=== PATIENT | female | born 1950 | race Caucasian/White ===

== ENCOUNTER → 2022-08-27 12:49 | Outpatient (CLI) | payer MEDICARE, OTHER, SELFPAY ==
[2022-08-27 16:39] LABS: Hematocrit 45.5 % (37.0-47.0); Hemoglobin 15.1 g/dL (12.2-16.2); Red Blood Count 4.82 M/mm3 (4.20-5.40); White Blood Count 10.2 K/mm3 (4.8-10.8)
[2022-08-27 16:40] LABS: Basophils # 0.1 K/mm3 (0-0.2); Basophils % 0.8 % (0.1-2.0); Eosinophils # 0.4 K/mm3 (0.0-0.4); Eosinophils % 3.9 % (0.1-12.0); Lymphocytes # 3.6 K/mm3 (0.7-4.5); Lymphocytes % 35.4 % (10-50); Mean Corpuscular HGB Conc 33.1 g/dL (31.8-35.4); Mean Corpuscular Hemoglobin 31.3 pg (27.0-31.2); Mean Corpuscular Volume 94.5 fl (81-99); Mean Platelet Volume 8.5 fl (7.4-10.4); Monocytes # 0.6 K/mm3 (0.1-1.0); Monocytes % 5.4 % (1.7-9.3); Neutrophils # 5.6 K/mm3 (1.8-7.8); Neutrophils % 54.5 % (37.0-80.0); Platelet Count 421 K/mm3 (142-424); Red Cell Distribution Width 13.2 % (11.5-17.5)
[2022-08-27 16:54] LABS: Alanine Aminotransferase 39 U/L (12-78); Albumin Level 3.6 g/dl (3.5-5.0); Albumin/Globulin Ratio 1.3 (1.1-1.8); Alkaline Phosphatase 192 U/L (38-126); Anion Gap 11.7 mEq/L (5-15); Aspartate Amino Transferase 37 U/L (14-36); Bilirubin,Total 0.5 mg/dl (0.2-1.3); Blood Urea Nitrogen 29 mg/dl (7-17); Calcium 8.3 mg/dl (8.4-10.2); Carbon Dioxide 31 mmol/L (22.0-30.0); Chloride 98 mmol/L (98-107); Chol/HDL Ratio 2.8 (1-3.5); Cholesterol 187 mg/dl (140-200); Estimated Glomerular Filt Rate 62 ml/min (>60); GFR (African American) 74 ML/MIN (>60); Globulin 2.8 g/dL (1.3-3.2); Glucose 69 mg/dl (74-100); HDL Cholesterol 67 mg/dl (40-60); Potassium 4.7 mmoL/L (3.5-5.1); Sodium 136 mmol/L (136-145); Total Protein,Serum 6.4 g/dl (6.3-8.2); Triglycerides 126 mg/dl (30-150); VLDL Cholesterol 25 mg/dL (0-40)
[2022-08-27 17:05] LABS: Direct LDL Cholesterol 82.91 mg/dL (100-129)
[2022-08-27 17:21] LABS: Thyroid Stimulating Hormone 1.06 uIU/mL (0.465-4.68)
== END ==
PROVIDERS: PCP Internal Medicine; Visit Provider Internal Medicine
DX: E03.9 Hypothyroidism, unspecified (principal); E78.5 Hyperlipidemia, unspecified; I10 Essential (primary) hypertension
CPT/HCPCS: 80053; 80061; 84443; 85025

== ENCOUNTER → 2022-10-21 13:41 | Outpatient (POV) | payer MEDICARE, OTHER, SELFPAY | PROVIDERS: Visit Provider Dermatology | DX: Z00.00 Encounter for general adult medical examination without abnormal findings (principal) ==

== ENCOUNTER → 2022-12-19 14:42 | Outpatient (CLI) | payer MEDICARE, OTHER, SELFPAY ==
--- NOTE | 2022-12-19 14:48 | CT_ITS ---
FINAL REPORT CLINICAL HISTORY: LLQ PAIN COMPARISON: None FINDINGS: Axial CT images of the abdomen and pelvis were obtained without intravenous contrast. Coronal and sagittal reformatted images were also obtained.This study was performed with techniques to keep radiation doses as low as reasonably achievable (ALARA). Individualized dose reduction techniques using automated exposure control or adjustment of mA and/or kV according to the patient's size were employed. Abdomen:The lung bases are clear. There is no evidence of renal stone or hydronephrosis.The liver, spleen and pancreas have an unremarkable, unenhanced appearance. No mass or adenopathy is seen. Moderate vascular calcification is present. A small hiatal hernia is noted. Pelvis: Images of the pelvis reveal no evidence of ureteral dilation or ureteral stone. There are multiple colonic diverticula present, with inflammatory change adjacent to the distal descending colon, compatible with diverticulitis. There is no evidence of obstruction, abscess, or pneumoperitoneum. The patient is post hysterectomy. IMPRESSION: Multiple colonic diverticula and inflammatory change adjacent to the distal descending colon compatible with diverticulitis. No abscess, obstruction, or pneumoperitoneum is present. Reviewed, Interpreted and Dictated by Luis Maya III, MD Transcribed by Nory Pratt Authenticated and . [facility]
[2022-12-19 15:05] LABS: Microscopic, Urine URINE MICROSCOPIC (MICROSCOPIC)
[2022-12-19 15:23] LABS: Appearance,Urine CLEAR (Clear); Basophils # 0.1 K/mm3 (0-0.2); Basophils % 0.6 % (0.1-2.0); Bilirubin,Urine Negative (Negative); Blood, Urine Negative (Negative); Color,Urine YELLOW (Yellow); Eosinophils # 0.4 K/mm3 (0.0-0.4); Eosinophils % 4.3 % (0.1-12.0); Glucose,Urine (UA) Negative (Negative); Hematocrit 46.7 % (37.0-47.0); Ketones,Urine TRACE (Negative); Leukocyte Esterase,Urine Negative (Negative); Lymphocytes # 1.7 K/mm3 (0.7-4.5); Lymphocytes % 18.1 % (10-50); Mean Corpuscular HGB Conc 32.1 g/dL (31.8-35.4); Mean Corpuscular Hemoglobin 29.8 pg (27.0-31.2); Mean Corpuscular Volume 92.7 fl (81-99); Monocytes # 0.6 K/mm3 (0.1-1.0); Monocytes % 6.6 % (1.7-9.3); Neutrophils # 6.7 K/mm3 (1.8-7.8); Neutrophils % 70.3 % (37.0-80.0); Nitrate,Urine Negative (Negative); PH,Urine 5.5 (5.0-8.5); Platelet Count 312 K/mm3 (142-424); Protein,Urine Negative (Negative); Red Blood Count 5.04 M/mm3 (4.20-5.40); Red Cell Distribution Width 12.7 % (11.5-17.5); Specific Gravity, Urine 1.025 (1.005-1.030); Urobilinogen,Urine 0.2 EU/dl (0.2); White Blood Count 9.6 K/mm3 (4.8-10.8)
[2022-12-19 15:32] LABS: Chloride 99 mmol/L (98-107); Potassium 3.5 mmoL/L (3.5-5.1); Sodium 136 mmol/L (136-145)
[2022-12-19 15:34] LABS: Alanine Aminotransferase 39 U/L (12-78); Aspartate Amino Transferase 38 U/L (14-36); Blood Urea Nitrogen 19 mg/dl (7-17); Estimated Glomerular Filt Rate 71 ml/min (>60); GFR (African American) 85 ML/MIN (>60)
[2022-12-19 15:35] LABS: Albumin Level 3.9 g/dl (3.5-5.0); Alkaline Phosphatase 274 U/L (38-126); Anion Gap 11.5 mEq/L (5-15); Bilirubin,Total 0.5 mg/dl (0.2-1.3); Calcium 9.9 mg/dl (8.4-10.2); Carbon Dioxide 29 mmol/L (22.0-30.0); Glucose 99 mg/dl (74-100); Total Protein,Serum 7.9 g/dl (6.3-8.2)
== END ==
PROVIDERS: PCP Internal Medicine; Visit Provider Internal Medicine
DX: R10.32 Left lower quadrant pain (principal)
CPT/HCPCS: 36415; 74176; 80053; 81001; 85025

== ENCOUNTER 2023-10-20 15:32 | Outpatient (CLI) | payer MEDICARE, OTHER, SELFPAY ==
[2023-10-20 13:36] LABS: Basophils # 0.1 K/mm3 (0-0.2); Basophils % 1.4 % (0.1-2.0); Eosinophils # 0.4 K/mm3 (0.0-0.4); Eosinophils % 4.9 % (0.1-12.0); Hematocrit 47.1 % (37.0-47.0); Hemoglobin 16.1 g/dL (12.2-16.2); Lymphocytes % 25.3 % (10-50); Mean Corpuscular HGB Conc 34.1 g/dL (31.8-35.4); Mean Corpuscular Hemoglobin 31.4 pg (27.0-31.2); Mean Corpuscular Volume 92.1 fl (81-99); Mean Platelet Volume 7.9 fl (7.4-10.4); Monocytes # 0.5 K/mm3 (0.1-1.0); Monocytes % 6.3 % (1.7-9.3); Neutrophils % 62.1 % (37.0-80.0); Platelet Count 289 K/mm3 (142-424); Red Blood Count 5.11 M/mm3 (4.20-5.40); Red Cell Distribution Width 13.5 % (11.5-17.5); White Blood Count 8.1 K/mm3 (4.8-10.8)
[2023-10-20 14:18] LABS: Alanine Aminotransferase 85 U/L (12-78); Albumin Level 4.3 g/dl (3.5-5.0); Albumin/Globulin Ratio 1.3 (1.1-1.8); Alkaline Phosphatase 291 U/L (38-126); Anion Gap 16.3 mEq/L (5-15); Aspartate Amino Transferase 67 U/L (14-36); Bilirubin,Total 0.7 mg/dl (0.2-1.3); Blood Urea Nitrogen 21 mg/dl (7-17); Calcium 9.6 mg/dl (8.4-10.2); Carbon Dioxide 23 mmol/L (22.0-30.0); Chloride 97 mmol/L (98-107); Chol/HDL Ratio 4.1 (1-3.5); Cholesterol 261 mg/dl (140-200); Estimated Glomerular Filt Rate 61 ml/min (>60); GFR (African American) 74 ML/MIN (>60); Globulin 3.4 g/dL (1.3-3.2); Glucose 93 mg/dl (74-100); HDL Cholesterol 63 mg/dl (40-60); Potassium 4.3 mmoL/L (3.5-5.1); Sodium 132 mmol/L (136-145); Total Protein,Serum 7.7 g/dl (6.3-8.2); Triglycerides 158 mg/dl (30-150); VLDL Cholesterol 32 mg/dL (0-40)
[2023-10-20 14:31] LABS: Direct LDL Cholesterol 132.26 mg/dL (100-129)
[2023-10-20 14:37] LABS: 25-OH Vitamin D, Total 43.9 ng/mL (30-100)
== END 2023-10-20 23:59 | disposition home or self-care (01) ==
LOC: LAB.DROPOF 15:33
PROVIDERS: PCP Internal Medicine; Visit Provider Internal Medicine
DX: E78.5 Hyperlipidemia, unspecified (principal); E55.9 Vitamin D deficiency, unspecified; I10 Essential (primary) hypertension
CPT/HCPCS: 80053; 80061; 82306; 85025

== ENCOUNTER 2024-12-04 23:08 | Emergency (ER) | payer MEDICARE, OTHER, SELFPAY ==
--- NOTE | 2024-12-04 23:09 | HMH.EDGENADL ---
Discharge Plan Disposition Patient Disposition: Home, Self-Care Prescriptions Prescriptions: No Action potassium chloride 10 mEq tablet extended release 10 meq PO DAILY Qty: 90 1RF irbesartan-hydrochlorothiazide 300-12.5 mg tablet 1 tab PO DAILY Qty: 90 1RF furosemide 20 mg tablet See Rx Instructions .ROUTE .COMPLEX Qty: 90 1RF Dose Instruction: Take 2 tablets by mouth once daily Rx Instructions: Take 2 tablets by mouth once daily Referrals Follow up/Referrals: Provider,Referral, MD [Primary Care Provider, Medical] - See instructions Activity Restrictions/Add. Instructions Additional Instructions/Restrictions: Please follow-up with your primary care provider. Please return to the emergency department if you develop any new or worsening symptoms or become concerned for your health. Clinical Impressions Clinical Impression: Redness of skin Instructions Patient Instructions: DI for Skin Abscess Print Language Print Language: Finnish Discharge ED Provider: Qasim Kay General Adult HPI General Chief complaint: Skin/Abscess/Foreign Body Stated complaint: Allergic Reaction Time Seen by Provider: 12/04/24 23:09 History of Present Illness HPI narrative: 74-year-old female with history of hypertension presents for diffuse itchy red skin. She reports that started shortly prior to arrival. She took some Benadryl but did not improve. She denies any wheezing chest pain shortness of breath tongue/lip swelling, hives, abdominal pain, nausea vomiting or any other symptoms. Just itchy red skin. Nothing like this has had before. She denies any new allergic exposures. She did not take any medications recently has not had any recent medication changes. She did eat some salad from [employer] but that was hours before this happened. Related Data Previous Rx's ?Medication ?Instructions ?Recorded potassium chloride 10 mEq 10 meq PO DAILY #90 tabs 03/16/24 tablet,extended release irbesartan 300 1 tab PO DAILY #90 tabs 09/09/24 mg-hydrochlorothiazide 12.5 mg tablet furosemide 20 mg tablet See Rx Instructions .Route 10/06/24 .COMPLEX #90 tabs Allergies Allergy/AdvReac Type Severity Reaction Status Date / Time aspirin Allergy Other Verified 10/20/23 11:52 augmentin Allergy Hives Uncoded 10/20/23 11:52 clindimyacin Allergy c-diff Uncoded 10/20/23 11:52 foramin Allergy Other Uncoded 10/20/23 11:52 [facility] Disclaimer: The information contained in this section may have been updated after the patient was seen, as this information can be updated by other users. Social History (Updated 10/21/23 @ 08:28 by Jaret Magdaleno MD) Smoking Status: Current every day smoker alcohol intake: never current occupational status: retired Travel in the last 8 weeks?: Inside the [place] Other Medical History Have you received the Pneumonia Vaccine: No ROS Obtained: Yes All systems reviewed & no additional complaints except as documented Physical Exam General General appearance: alert and in no apparent distress Head Head exam: atraumatic and normocephalic Eye Eye exam: Present normal appearance, PERRL and EOMI ENT ENT exam: Present normal oropharynx and normal external ear exam Neck Neck exam: Present normal inspection and full ROM Chest Chest inspection: Present normal inspection and symmetric chest wall rise; Absent tenderness Respiratory Respiratory exam: Present normal lung sounds bilaterally; Absent respiratory distress Cardiovascular Cardiovascular exam: Present regular rate and normal rhythm Abdominal Exam Abdominal exam: Present soft; Absent distention, tenderness or guarding Extremities Exam Extremities exam: Present normal inspection; Absent edema or joint swelling Back Exam Back exam: Present normal inspection; Absent tenderness Neurological Exam Neurological exam: Present alert and oriented X3; Absent motor sensory deficit Psychiatric Psychiatric exam: Present normal affect and normal mood Skin Skin exam: Present warm, dry and erythema (Diffuse erythema without hives) Lymphatic Lymphatic Findings: no adenopathy Medical Decision Making Medical Records Medical records reviewed: Yes I reviewed the patient's medical records. Screening: Per USPSTF and CDC recommendations, given the prevalence of disease in our region, it is our hospital?s policy to screen for HIV and viral Hepatitis for all patients aged 18 and over and those with ongoing risk factors. Dirk Inquiry Pt receiving controlled substance: No Dirk was queried for this patient: No Vital Signs: 12/04/24 23:13 12/05/24 00:16 12/05/24 00:52 Temperature 97.7 F 97.9 F Temperature Source Oral Pulse Rate 66 Pulse Rate [Left Radial] 105 H Respiratory Rate 20 16 Blood Pressure 218/106 H 190/90 H Blood Pressure [Right Arm] 245/107 H Blood Pressure Mean [Right Arm] 153 Blood Pressure Source Manual Cuff/ Auscultation Blood Pressure Source [Right Arm] Automatic Cuff Blood Pressure Position [Right Arm] Sitting 02 Sat by Pulse Oximetry 95 Oxygen Delivery Method Room Air Room Air Lab Data Lab results reviewed: Yes I reviewed the patient's lab results. Lab Results 12/04/24 23:12: WBC 8.4, RBC 5.00, Hgb 15.4, Hct 46.2, MCV 92.4, MCH 30.8, MCHC 33.3, RDW 12.9, Plt Count 252, MPV 10.0, Neut % (Auto) 49.4, Lymph % (Auto) 40.3, [place] % (Auto) 7.6, Eos % (Auto) 1.9, Baso % (Auto) 0.6, Neut # (Auto) 4.1, Lymph # (Auto) 3.4, [place] # (Auto) 0.6, Eos # (Auto) 0.2, Baso # (Auto) 0.1, Sodium 133 L, Potassium 3.7, Chloride 102, Carbon Dioxide 24, Anion Gap 10.7, BUN 24 H, Creatinine 0.80, Estimated Creat Clear 58, Estimated GFR 70, Est GFR ( Amer) 85, Glucose 109 H, Calcium 10.2, Total Bilirubin 0.8, AST 74 H, ALT 70, Alkaline Phosphatase 359 H, Total Protein 8.1, Albumin 4.2, Globulin 3.9 H, Albumin/Globulin Ratio 1.1 12/04/24 23:12 12/04/24 23:12 Orders (Tests/Meds): ED MEDICATIONS Discontinued Medications Generic Name Dose Route Start Last Admin Trade Name Freq PRN Reason Stop Dose Admin Famotidine 20 mg 12/04/24 23:10 12/04/24 23:15 Famotidine 20mg/2ml Vial IV 12/04/24 23:11 20 mg ONCE ONE Administration Sodium Chloride 1,000 mls @ 999 mls/hr 12/04/24 23:15 12/04/24 23:15 Sod Chlor 0.9% 1000ml Bag IV 12/05/24 00:15 999 mls/hr .Q1H1M GORDO Administration Methylprednisolone Sodium Succinate 125 mg 12/04/24 23:10 12/04/24 23:15 Methylprednisolone Sod Succ 125mg Vial IM 12/04/24 23:11 125 mg ONCE ONE Administration Sodium Chloride 8 ml 12/04/24 23:10 Sodium Chloride 0.9% 10ml Vial IV 01/03/25 23:09 NEEDED PRN dilute pepcid ORDERS Category Date Time Status CBC w/Auto Diff [Complete Blood Count Auto Diff] Stat Lab 12/04/24 23:12 Completed CMP [Comprehensive Metabolic Panel] Stat Lab 12/04/24 23:12 Completed ECG Data Tracing #1: I reviewed this ECG and interpreted as documented below: Sinus rhythm, rate of 98, no significant ST changes. ECG initial impression date: 12/04/24 ECG initial impression time: 23:12 Medical Decision Narrative: 74-year-old female with history of hypertension hyperlipidemia presents for diffuse redness and itchy skin. History was obtained via interactive discussion with patient. On arrival, patient is febrile, hypertensive, satting properly on room air, moving all extremities spontaneously. Full physical exam performed and significant for clear lungs bilaterally, no evidence of angioedema no hives, benign abdominal exam. Differential includes but is not limited to anaphylaxis, angioedema, idiopathic urticaria, allergic reaction, patient does not meet criteria for anaphylaxis, only symptom is itchy red skin. Patient was given Solu-Medrol, Pepcid, took Benadryl prior to arrival for symptomatic management and correction of underlying abnormalities. Workup initiated including CBC CMP EKG. On re-evaluation, patient has marked symptomatic improvement. No longer significantly red or itchy. Laboratory workup independently interpreted by me and significant for no significant electrolyte derangement no significant leukocytosis. Given patient history, exam and workup, patient's presentation most likely represents skin eruption of uncertain etiology, could be allergic reaction. No evidence of anaphylaxis angioedema or other more serious pathology at this time. Patient was discharged in stable condition with instructions to follow-up with PCP, return precautions given.. Procedures Risk/Benefits of Procedure(s) Were Explained: Yes Critical Care Critical Care Time Critical Care Time: No
--- NOTE | 2024-12-04 23:12 | ECG_ITS ---
APPROVED REPORT Exam: Resting ECG HR:90 bpm ECG Measurements Heart Rate 90 AXES OK 167 P 78 QRSd 98 QRS 6 QT 306 T 65 QTc 354 Conclusion SINUS RHYTHM NONSPECIFIC T-WAVE ABNORMALITY BORDERLINE ECG UNCONFIRMED REPORT Electronically signed by : ROZ VAZQUEZ, 12/06/2024 03:48:37
[2024-12-04 23:13] VITALS: BP 245/107; PULSE 105; RESP 20; TEMP 36.5; O2SAT 95; BMI 30.2
[2024-12-04] MEDS: 0.9 % SODIUM CHLORIDE 1000ML 1,000 ML 999 ML IV (23:15)
[2024-12-04] MEDS: METHYLPREDNISOLONE SOD SUCC 125MG VIAL 125 MG IM (23:15)
[2024-12-04] MEDS: FAMOTIDINE 20MG/2ML VIAL 20 MG IV (23:15)
[2024-12-04 23:18] LABS: Hematocrit 46.2 % (37.0-47.0); Hemoglobin 15.4 g/dL (12.2-16.2); Immature Granulocytes % 0.2 %; Mean Corpuscular HGB Conc 33.3 g/dL (31.8-35.4); Mean Corpuscular Hemoglobin 30.8 pg (27.0-31.2); Mean Corpuscular Volume 92.4 fl (81-99); Nucleated Red Blood Cells % 0 %; Platelet Count 252 K/mm3 (142-424); Red Blood Count 5.00 M/mm3 (4.20-5.40); Red Cell Distribution Width-SD 43.7 fL; White Blood Count 8.4 K/mm3 (4.8-10.8)
--- OUTSIDE RECORDS SUMMARY | 2024-12-04 23:27 | XMS_ITS | Patient Health Record ---
Author Organization [facility] Address [address] [place] [id number] Support Name Relationship Address Phone CRISTELA DE Guarantor Unknown [phone] Reason For Referral No Information Plan Of Treatment No Information
--- OUTSIDE RECORDS SUMMARY | 2024-12-04 23:27 | XMS_ITS | Patient Health Record ---
Author Organization [facility] Billing Info Address [address] [place] [address] Care Team Providers Care Lay Out And Detail Drafter Name Role Phone TAYLER GILES Primary Care Provider MELISSA MAYES [phone] Allergies Allergen (clinical drug ingredient) Drug/Non Drug Allergy documented on EMR Reaction Allergy Type Onset Date Status aspirin Aspirin Unknown Drug Allergy Active clindamycin Clindamycin HCl Unknown Drug Allergy Active Heparin Sodium Flush Unknown Drug Allergy Active Augmentin Unknown Drug Allergy Active Reason For Referral No Information Medications Medication SIG (Take, Route, Frequency, Duration) Notes Start Date End Date Status Glucosamine 1500 Complex - as directed Orally Active Tums 500 MG 2 tabletS Orally thr ee times a day Active Furosemide 20 MG TAKE 1 TABLET BY MAYELIN TH EVERY DAY Oral for 90 Active Irbesartan-Hydrochlorothiaz angelito 300-12.5 MG 1 tablet Orally Once a day for 30 day(s) Active Zqvqznpg-Tpybryqnm-Qlmviaoe 3.5-55506-0.1 1 drop into bilateral ears Otic Four times a day for 7 days 10/17/2021 Active Doxycycline Hyclate 100 MG 1 tablet Oral ly Twice a day for 7 days 10/17/2021 Active Potassium Chloride ER 10 MEQ TAKE 1 CAPSULE BY MOUTH EVERY DAY Oral for 90 Active Social History Tobacco Use: Social History Observation Description Date Details (start date - stop date) Current Smoker NA - NA Tobacco Status: Question Answer Notes Patient is a current every day smoker Problems Problem Type SNOMED Code ICD Code Onset Dates Problem Status W/U Status Risk Notes Problem 512721483 Mixed hyperlipidemia (E78.2) Active confirmed Problem 38312664 Age-related osteoporosis without current pathological fracture (M81.0) Active confirmed Problem 952011340 Encounter for general adult medical examination without abnormal findings (Z00.00) Active confirmed Problem 369292359 Obesity (BMI 30-39.9) (E66.9) Active confirmed Problem 50641182 Preoperative clearance (Z01.818) Active confirmed Problem 45948793 Essential hypertension (I10) Active confirmed Problem 556169325 Abnormal EKG (R94.31) Active confirmed Problem 31070572 Epigastric abdominal pain (R10.13) Active confirmed Problem 08700168 Tobacco dependence (F17.200) Active confirmed Problem 87224316 PMB (postmenopausal bleeding) (N95.0) Active confirmed [facility] 12/30/2019 Problem 386539051 Trace edema (R60.9) Active confirmed Problem 774139608 Dietary surveillance and counseling (Z71.3) Active confirmed Problem 971988719 History of hysterectomy for benign disease (Z90.710) Active confirmed Endometrial hyperplasia, no atypia Problem 597745530 History of bilateral tubal ligation (Z98.51) Active confirmed Problem 185357247318751 History of endometrial ablation (Z98.890) Active confirmed Plan Of Treatment Pending Test Test Name Order Date IGP,Aptima HPV,Age Gdln ([id number]) 11/21 Future Test Test Name Order Date US- TRANSVAGINAL (79626)(RHTC-TRANPL) TERRA- DXA AXIAL (07763)(RHTC-DXAAXIAL) 0 01/25/2020 LOW DOSE LUNG SCREENING (40724) IH 01/24 MAMMO- DIGITAL BREAST MECCA ALANA (G0279)(R HTC-DBTBI) 08/07/2021 Insurance Providers Payer Name Payer Address Payer Phone Subscriber Number Group Number Insured Name Patient Relationship to Insured Coverage Start Date Coverage End Date MEDICARE [place] PART B [address] [facility] [id number] Nicolle Bella Self - patient is the insured 7 9 [employer] MEDICARE SUPP [address] [address] [place], [place] [id number] BellaLyle greenia Self - patient is the insured 7 9 Medical (General) History Medical History History ICD Code Hepatitis A Diverticulitis Hypertension Skin cancers High cholesterol Surgical History Surgery Date(Month/Year) T & A tubal ligation appendectomy breast reduction cataract surgery shoulder surgery R and L D&C skin cancer excision neck surgery Hysterectomy/BSO 2019 Hospitalization History Reason Date(Month/Year) See Sx History
--- OUTSIDE RECORDS SUMMARY | 2024-12-04 23:27 | XMS_ITS | Clinical Summary ---
Author Organization [employer] ([place], [place], [place], [place]) Address [address] [place] [address] Care Team Providers Care Metal Roofer Name Role Phone Jaret Magdaleno MD Primary Care Provider [phone] Social History Tobacco Use Types Packs/Day Years Used Date Smoking Tobacco: Never Assessed Food Insecurity Answer Date Recorded Food run out past 12 months Not on file 05/11 Food did not last past 12 months Not on file 05/29/2023 Employment Answer Date Recorded Help finding and keeping a job Not on file 0 05/29/2023 Family and Community Support Answer Miguel e Recorded Help with Day to Day Activities Not on file 05/29/2023 Feeling Lonely or Isolated Not on file 05/29 Educational Attainment Answer Date Antonio rded Speak language other than Andorran at home Not on file 05/29/2023 Want help with school or training Not on file 05/29/2023 Substance Use Answer Date Recorded Used prescription meds for non-medical reasons N ot on file 05/29/2023 Used illegal drugs past 12 months Not on file 05/29/2023 Comments Unknown Sex and Gender Information Value Date Recorded Sex Assigned at Female 11/05/2021 12:38 PM CDT Legal Sex Female 12:38 PM CDT Gender Identity Female 11/05/2021 12:38 PM CDT Sexual Orientation Not on file Plan of Treatment Health Maintenance Due Date Last Done Comments CT Colonography 1950 Colonoscopy 1950 Colorectal Cancer Screening 1950 DXA SCAN 1950 FOBT/FIT 1950 Fit-DNA (Cologuard) 1950 Sigmoidoscopy 1950 Depression Screening (12+) 1962 Tobacco Cessation Counseling and Screening (12+) 1962 Hepatitis C Screening 1968 DTAP/TDAP/TD VACCINES (1 - Tdap) 1969 Pneumococcal 50+ years (1 of 1 - PCV) 2000 Shingles Vaccine (Zoster) (1 of 2) 2000 Medicare Initial AWV [id number] 07/10/2016 COVID-19 VACCINE (1 - 2023-2 5 season) 2024 Falls Risk Screening 05/11/2024 Breast Cancer Screening 12/22/2024 12/23/19 23, 12/19/2021, 12/18/2020, Additional history exists Influenza Vaccine (#1) 2025 Respiratory Syncytial Virus (RSV) Adult or (1 - 1-dose 75+ series) 2025 Procedures Procedure Name Priority Date/Time Associated Diagnosis Comments MM DIGITAL MAMMO SCREEN WITH MECCA BILATERAL Routine 12/22/2022 10:33 AM EDT Visit for screening mammogram from Last 3 Months or Most Recently Relevant to Health Maintenance Results * MM digital mammo screen with mecca bilateral (12/22/2022 10:33 AM EDT) Anatomical Region Laterality Modality Breast Bilateral Mammography 12/22/2022 12:3 6 PM EDT Impressions 12/22/2022 12:41 PM EDT FINAL IMPRESSION: ACR BI-RADS 2: Benign finding. RECOMMENDATIONS: Routine annual screening mammography. A letter including results and recommendations was sent to the patient. Density notification was provided to patients with type 3 or 4 breast tissue pattern. Patient information entered into a reminder system with a target due date for the next mammogram. At our facility, a iroquois marker is positioned over a visible skin lesion and a linear marker is used to indicate a scar. A triangular marker is placed on a self reported palpable finding. Note: Mammography does not detect approximately 10-15% of breast cancers. An annual clinical breast exam by the patient's breast care physician and regular monthly self breast exams by the patient are integral parts of breast cancer screening, in addition to annual mammography. A normal mammogram does not completely exclude the presence of breast cancer, especially if there is an abnormal finding on physical exam. When clinically indicated, a biopsy should not be deferred because of a normal mammogram report. cc: Narrative 12/22/2022 12:41 PM EDT PROCEDURE: Bilateral digital screening mammogram with tomosynthesis. REASON FOR EXAM: Routine screening. FAMILY HISTORY: No family history of breast cancer. COMPARISON STUDY: [facility] FINDINGS: Craniocaudal and mediolateral oblique images of both breasts were obtained in 2D, C-view, and 3D modes. The breast tissue is almost entirely fatty. Distortions within both breasts on prior reduction mammoplasty are unchanged. Oil cysts grouped within the subareolar right breast are again noted. There are no new masses, suspicious calcifications or areas of architectural distortion. No significant interval change. This examination was reviewed with the benefit of computer-aided detection (CAD). Gary Norton MD IMG MAMMOGRAPHY ORDERABLES Final Result from Last 3 Months or Most Recently Relevant to Health Maintenance Insurance MEDICARE PART A B Care Teams Metal Roofer Relationship Specialty Start Date End Date Jaret Magdaleno MD [address] [place] [address] [place] [id number] PCP - General General Internal Medicine 12/22/22
--- OUTSIDE RECORDS SUMMARY | 2024-12-04 23:27 | XMS_ITS | Clinical Summary ---
Author Organization [facility] Address [address] [place] [address] Care Team Providers Care Safety Tech Name Role Phone Nam Newton MD Primary Care Provider [phone] Allergies Active Allergy Reactions Criticality Noted Date Comments Aspirin Other (See Comments) 09/25/2016 Bleeding from eyes Amoxicillin-Pot Clavulanate Hives 09/25/2016 Clindamycin/Lincomycin Diarrhea 09/25/2016 Formaldehyde Anaphylaxis High 09/25/2016 Medications valsartan-hydroc hlorothiazide (DIOVAN-HCT) 160-12.5 MG per tablet Take 1 tablet by mouth Daily. 320 - 25 mg Active amLODIPine (NORVASC) 5 MG tablet Take 5 mg by mouth Daily. Active Multiple Vitamins-Mineral s (CENTRUM ADULTS PO) Take 1 tablet by mouth Daily. Active Lactobacillus (PROBIOTIC ACIDOPHILUS PO) Take by mouth Daily. Active Pet[place]key-3 Fatty Acids (FISH OIL) 1000 MG capsule capsule Take 1,000 mg by mouth Every Other Day. Active calcium carbonate (TUMS) 500 MG chewable tablet Chew 6 tablets Daily. Active Selenium (SELENIMIN-200 PO) Take 1 tablet by mouth Daily. Active Social History Tobacco Use Types Packs/Day Years Used Date Smoking Tobacco: Never Assessed Abuse Screen Answer Date Recorded Unsafe at Home or Work/School Not on file Feels Threatened by Someone? Not on file 03/2023 Does Anyone Keep You from Co ntacting Others or Doint Things Outside the Home? Not on file 02/18/2023 Physical Sign of Abuse Present Not on file 1 Housing Stability Answer Date Recorded Current Living Arrangements Not on file 02/08 Potentially Unsafe Housing Conditions Not on rocco e 02/18/2023 Family and Community Support Answer Miguel e Recorded Help with Day-to-Day Activities Not on file 02/18/2023 Lonely or Isolated Not on file 02/18/2023 Employment Answer Date Recorded Do you want help finding or keeping work or a bobby b? Not on file 02/18/2023 Disabilities Answer Date Recorded Concentrating, Remembering, or Making Decisions Difficulty Not on file 02/18/2023 Doing Errands Independently Difficulty Not on fi le 02/18/2023 Education Answer Date Recorded Help with school or training? Not on file Preferred Language Not on file 02/18/2023 Comments Unknown Sex and Gender Information Value Date Recorded Sex Assigned at Not on file Legal Sex Female 9:02 AM EDT Gender Identity Not on file Sexual Orientation Not on file Last Filed Vital Signs Vital Sign Reading Time Taken Comments Blood Pressure 129/79 09/25/2016 7:05 AM EDT Pulse 87 09/25/2016 7:05 AM EDT Temperature 36.7 C (98.1 F) 09/25/2016 7:05 AM EDT Respiratory Rate 18 09/25/2016 7:05 AM EDT Oxygen Saturation 95% 09/25/2016 7:05 AM EDT Inhaled Oxygen Concentration - - Weight 88 kg (194 lb) 09/25/2016 7:05 AM EDT Height 157.5 cm (5' 2 ) 09/25/2016 7:05 AM EDT Body Mass Index 35.48 09/25/2016 7:05 AM EDT Plan of Treatment Health Maintenance Due Date Last Done Comments ANNUAL PHYSICAL 1950 DXA SCAN 1950 HEPATITIS C SCREENING 1950 MAMMOGRAM 1990 COLOGUARD 07/18/1995 COLON CANCER SCREENING 5 YEAR SIGMOIDOSCOPY 07/18/1995 COLONOSCOPY 07/18/1995 COLORECTAL CANCER SCREENING 07/18/1995 CT COLONOGRAPHY 07/18/1995 FECAL OCCULT BLOOD TEST 07/18/1995 FIT Testing (1 year) 07/18/1995 Pneumococcal Vaccine 50+ (1 of 1 - PCV) 2000 ZOSTER VACCINE (1 of 2) 2000 COVID-19 Vaccine (1 - 2024-25 season) 2024 INFLUENZA VACCINE 02/08/2025 TDAP/TD VACCINES (2 - Tdap) 04/19/2028 04/19/2018 Insurance MEDICARE A & B AETNA [facility] Care Teams Safety Tech Relationship Specialty Start Date End Date Nam Newton MD [address] [place] [address] [place] [address] PCP - General Family Medicine 09/19/16
--- OUTSIDE RECORDS SUMMARY | 2024-12-04 23:27 | XMS_ITS | Referral Summary ---
Author Organization [employer] ([place], [place], [place], [place]) Address [address] [place] [address] Care Team Providers Care Mine Expert Name Role Phone Jaret Magdaleno MD Primary Care Provider [phone] Social History Tobacco Use Types Packs/Day Years [...] Date Antonio rded Speak language other than Malian at home Not on file 05/29/2023 Want [...] Orientation Not on file Plan of Treatment Not on file Procedures Procedure Name Priority Date/Time Associated Diagnosis [...] the next mammogram. At our facility, a [place] marker is positioned over a visible skin [...] family history of breast cancer. COMPARISON STUDY: [facility] FINDINGS: Craniocaudal and mediolateral oblique images of [...] Insurance MEDICARE PART A B Care Teams Mine Expert Relationship Specialty Start Date End Date Jaret Magdaleno MD [address] [place] [address] [place] [phone] PCP - General General Internal Medicine 12/22/22
--- OUTSIDE RECORDS SUMMARY | 2024-12-04 23:27 | XMS_ITS | Data Portability ---
Author Organization [facility] - CARL[facility] ALB[facility] Address [address] [place] [address] Assessment Encounter Date Assessment Date Assessment LastModified by Organization Details LastModified Time 10/15/2018 10/15/2018 The patient's blood pressure is At the goal of less than 140/90 at home Current medications will be continued. Low salt diet is recommended with 150 minutes of exercise each week. Not available 10/15/2018 08:42:51 05/09/2019 05/09/2019 The patient's blood pressure is At the goal of less than 140/90. Current medications will be continued. Low salt diet is recommended with 150 minutes of exercise each week. Not available 05/09/2019 10:56:29 11/03/2019 11/03/2019 The patient's blood pressure is At the goal of less than 140/90. Current medications will be continued. Low salt diet is recommended with 150 minutes of exercise each week. Not available 11/03/2019 11:46:05 04/30/2021 04/30/2021 The patient's blood pressure is At the goal of less than 140/90. Current medications will be continued. Low salt diet is recommended with 150 minutes of exercise each week. Not available 04/30/2021 17:04:42 03/04/2022 03/04/2022 The patient's blood pressure is At the goal of less than 140/90 at home Current medications will be continued. Low salt diet is recommended with 150 minutes of exercise each week. Not available 03/04/2022 09:13:20 Plan of Treatment Reminders Order Date Submit Date Provider Last Modified By Organization Details Last Modified Time Details Appointments None recorded. Lab lipid panel, serum [address] [facility], [address] [place] [address], [id number], 07:31:40 CBC w/ auto diff [address] [facility], [address] [place] [address], [address], 07:31:51 BMP, serum or plasma [address] [facility], [address] [place] [address], [address], 07:32:00 hepatic function panel, serum [address] [facility], [address] [place] [address], [address], 07:33:00 CMP, serum or plasma 2020 021 [facility], [address] [place] [address], [address], 19:48:41 lipid panel, serum 2020 021 [facility], [address] [place] [address], [address], 19:48:43 CBC w/ auto diff 2020 021 [facility], [address] [place] [address], [address], 19:26:57 CMP, serum or plasma 2018 019 [facility], [address] [place] [address], [address], 12/30/201 9 18:45:10 CBC w/ auto diff 2018 019 [facility], [address] [place], [address], 9 18:35:34 lipid panel, serum 2018 019 [facility], [address] [place], [address], 9 18:45:08 Referral None recorded. Procedures None recorded. Surgeries None recorded. Imaging None recorded. Medication Orders buspirone 10 mg tablet 2020 021 [id number], [address] [place], [address], 2 09:00:36 amlodipine 5 mg tablet [address] [facility] [place], [address], 0 08:52:35 irbesartan 300 mg-hydroch lorothiazi de 12.5 mg tablet 2019 020 [facility], [address] [place], [address], 0 11:50:16 amlodipine 5 mg tablet 2018 019 [id number], [address] [place], [address], 0 08:52:35 valsartan 320 mg-hydroch lorothiazi de 25 mg tablet 2018 019 [id number], [address] [place], [address], 0 10:55:46 amlodipine 5 mg tablet 2018 019 [id number], [address] [place], [address], 0 08:52:35 valsartan 320 mg-hydroch lorothiazi de 25 mg tablet 2018 019 [id number], [address] [place], [address], 0 10:55:46 Patient TargetsNo targets recorded. Patient Instructions Encounter Date Encounter Id Patient Instructions Last Modified By Organization Details Last Modified Time 10/15/2018 [id number] advised to quit smoking Not available 10/15/2018 08:46:31 Learning About Benefits of Quitting Smoking Not available 10/15/2018 08:46:31 high cholesterol : care instructions Not available 10/15/2018 08:46:31 05/09/2019 [id number] advised to quit smoking Not available 05/09/2019 11:09:08 10 ways to stop smoking and quit for life Not available 05/09/2019 11:09:07 04/30/2021 [id number] dash diet: care instructions Not available 04/30/2021 17:05:42 advised to quit smoking Not available 04/30/2021 17:05:42 10 ways to stop smoking and quit for life Not available 04/30/2021 17:05:42 Reason for Referral None Reported. Results Created Date Observation Date Name Description Value Unit Range Abnormal Flag Note LastModifiedBy Organization Detail LastModifiedTime 05/09/20 19 05/09/2019 CBC w/ auto diff white blood cells 7.2 K/uL 3.8-10 .8 normal Not Available [facility] [address] [place], [address], 05/09/2019 18:35:34 05/09/20 19 05/09/2019 CBC w/ auto diff red blood cells 4.92 M/uL 3.80-5 .20 normal Not Available [facility] [place], [address], 05/09/2019 18:35:34 05/09/20 19 05/09/2019 CBC w/ auto diff hemoglobin 15.5 g/dL 12.0-1 6.0 normal Not Available [facility] [address] [place], [address], 05/09/2019 18:35:34 05/09/20 19 05/09/2019 CBC w/ auto diff hematocrit 44.1 % 35.0-4 7.0 normal Not Available [facility] [address] [place] [address], [address], 05/09/2019 18:35:34 05/09/20 19 05/09/2019 CBC w/ auto diff MCV 90 fL 80-100 normal Not Available [facility] [address] [place] [address], [address], 05/09/2019 18:35:34 05/09/20 19 05/09/2019 CBC w/ auto diff MCH 32 pg 26-35 normal Not Available [facility] [address] [place] [address], [id number], 05/09/2019 18:35:34 05/09/20 19 05/09/2019 CBC w/ auto diff MCHC 35 g/dL 32-36 normal Not Available [facility] [address] [place] [address], [address], 05/09/2019 18:35:34 05/09/20 19 05/09/2019 CBC w/ auto diff RDW 13.4 % 11.0-1 5.0 normal Not Available [facility] [address] [place], [address], 05/09/2019 18:35:34 05/09/20 19 05/09/2019 CBC w/ auto diff MPV 8.9 fL 6.2-10 .5 normal Not Available [facility] [address] [place], [address], 05/09/2019 18:35:34 05/09/20 19 05/09/2019 CBC w/ auto diff platelet count 271 K/uL 130-40 0 normal Not Available [facility] [address] [place] [address], [address], 05/09/2019 18:35:34 05/09/20 19 05/09/2019 CBC w/ auto diff neutrophil,a bsolute 4.2 K/uL 1.6-8. 4 normal Not Available [facility] [address] [place] [address], [address], 05/09/2019 18:35:34 05/09/20 19 05/09/2019 CBC w/ auto diff lymphocyte,a bsolute 2.0 K/uL 0.4-5. 1 normal Not Available [facility] [address] [place] [address], [address], 05/09/2019 18:35:34 05/09/20 19 05/09/2019 CBC w/ auto diff monocyte,abs olute 0.6 K/uL 0.0-1. 2 normal Not Available [facility] [address] [place] [address], [address], 05/09/2019 18:35:34 05/09/20 19 05/09/2019 CBC w/ auto diff eosinophil,a bsolute 0.5 K/uL 0.0-0. 8 normal Not Available [facility] [address] [place] [address], [address], 05/09/2019 18:35:34 05/09/20 19 05/09/2019 CBC w/ auto diff basophil,abs olute 0.0 K/uL 0.0-0. 3 normal Not Available [facility] [address] [place] [address], [address], 05/09/2019 18:35:34 05/09/20 19 05/09/2019 CBC w/ auto diff % neutrophils 57.5 % 42.0-7 8.0 normal Not Available [facility] [address] [place] [address], [address], 05/09/2019 18:35:34 05/09/20 19 05/09/2019 CBC w/ auto diff % lymphocytes 27.3 % 11.0-4 7.0 normal Not Available [facility] [address] [place] [address], [address], 05/09/2019 18:35:34 05/09/20 19 05/09/2019 CBC w/ auto diff % monocytes 7.9 % 0.0-11 .0 normal Not Available [facility] [address] [place] [address], [address], 05/09/2019 18:35:34 05/09/20 19 05/09/2019 CBC w/ auto diff % eosinophils 7.0 % 0.0-7. 0 normal Not Available [facility] [address] [place] [address], [address], 05/09/2019 18:35:34 05/09/20 19 05/09/2019 CBC w/ auto diff % basophils 0.3 % 0.0-3. 0 normal Not Available [facility] [address] [place] [address], [address], 05/09/2019 18:35:34 05/09/20 19 05/09/2019 CBC w/ auto diff nucleated red cells 0.1 % 0.0-0. 9 normal Not Available [facility] [address] [place] [address], [address], 05/09/2019 18:35:34 05/09/20 19 05/09/2019 CBC w/ auto diff nucleated RBCs, absolute 0.00 K/uL not estab. normal Not Available [facility] [address] [place] [address], [address], 05/09/2019 18:35:34 05/09/20 19 05/09/2019 lipid panel , serum HDL cholesterol 50 mg/dL 66-242 low Not Available [facility] [address] [place] [address], [address], 05/09/2019 18:45:08 05/09/20 19 05/09/2019 lipid panel , serum triglyceride s 279 mg/dL 0-149 high TRIGL YCERI DE RANGE S KELLY L: < 150 BORDE RLINE HIGH: 150 - 199 HIGH: 200 - 499 VERY HIGH: > OR = 500 Not Available [facility] [address] [place] [address], [address], 05/09/2019 18:45:08 05/09/20 19 05/09/2019 lipid panel , serum cholesterol 252 mg/dL 0-199 high EDWARD STERO L (TOTA L) RANGE S IWONA ABLE: < 200 BORDE RLINE : 200 - 239 HIGHE R RISK: > 239 Not Available [facility] [address] [place] [address], [address], 05/09/2019 18:45:08 05/09/20 19 05/09/2019 lipid panel , serum LDL cholesterol 146 mg/dL _(raheem c) 0-99 high LDL EDWARD STERO L RANGE S OPTIM AL: < 100 NEAR/ ABOVE OPTIM AL: 100 - 129 BORDE RLINE HIGH: 130 - 159 HIGH: 160 - 189 VERY HIGH: > OR = 190 Not Available [facility] [address] [place] [address], [address], 05/09/2019 18:45:08 05/09/20 19 05/09/2019 CMP, serum or plasm a glucose 91 mg/dL 74-100 normal Not Available [facility] [address] [place] [address], [address], 05/09/2019 18:45:10 05/09/20 19 05/09/2019 CMP, serum or plasm a blood urea nitrogen 12 mg/dL 6-20 normal Not Available [facility] [address] [place] [address], [address], 05/09/2019 18:45:10 05/09/20 19 05/09/2019 CMP, serum or plasm a creatinine 0.75 mg/dL 0.50-0 .95 normal Not Available [facility] [address] [place] [address], [address], 05/09/2019 18:45:10 05/09/20 19 05/09/2019 CMP, serum or plasm a BUN/creatini ne ratio 16 (calc ) 10-20 normal Not Available [facility] [address] [place] [address], [address], 05/09/2019 18:45:10 05/09/20 19 05/09/2019 CMP, serum or plasm a sodium 137 mmol/ L 136-14 5 normal Not Available [facility] [address] [place] [address], [address], 05/09/2019 18:45:10 05/09/20 19 05/09/2019 CMP, serum or plasm a potassium 3.8 mmol/ L 3.4-5. 0 normal Not Available [facility] [address] [place] [address], [address], 05/09/2019 18:45:10 05/09/20 19 05/09/2019 CMP, serum or plasm a chloride 99 mmol/ L 98-107 normal Not Available [facility] [address] [place] [address], [address], 05/09/2019 18:45:10 05/09/20 19 05/09/2019 CMP, serum or plasm a carbon dioxide 26 mmol/ L 20-32 normal Not Available [facility] [address] [place] [address], [address], 05/09/2019 18:45:10 05/09/20 19 05/09/2019 CMP, serum or plasm a anion gap 12 (calc ) 7-25 normal Not Available [facility] [address] [place] [address], [address], 05/09/2019 18:45:10 05/09/20 19 05/09/2019 CMP, serum or plasm a calcium 9.6 mg/dL 8.6-10 .2 normal Not Available [facility] [address] [place], [address], 05/09/2019 18:45:10 05/09/20 19 05/09/2019 CMP, serum or plasm a total protein 7.6 g/dL 6.4-8. 3 normal Not Available [facility] [address] [place] [address], [address], 05/09/2019 18:45:10 05/09/20 19 05/09/2019 CMP, serum or plasm a albumin 4.2 g/dL 3.5-5. 2 normal Not Available [facility] [address] [place] [address], [address], 05/09/2019 18:45:10 05/09/20 19 05/09/2019 CMP, serum or plasm a globulin 3.4 g/dL_ (calc ) 1.5-4. 5 normal Not Available [facility] [address] [place] [address], [address], 05/09/2019 18:45:10 05/09/20 19 05/09/2019 CMP, serum or plasm a albumin/glob ulin ratio 1.2 (calc ) 1.1-2. 5 normal Not Available [facility] [address] [place] [address], [address], 05/09/2019 18:45:10 05/09/20 19 05/09/2019 CMP, serum or plasm a bilirubin, total 0.3 mg/dL 0.1-1. 2 normal Not Available [facility] [address] [place] [address], [address], 05/09/2019 18:45:10 05/09/20 19 05/09/2019 CMP, serum or plasm a alkaline phosphatase 181 U/L 35-105 high Not Available [facility] [address] [place] [address], [address], 05/09/2019 18:45:10 05/09/20 19 05/09/2019 CMP, serum or plasm a AST 30 U/L 0-32 normal Not Available [facility] [address] [place] [address], [address], 05/09/2019 18:45:10 05/09/20 19 05/09/2019 CMP, serum or plasm a ALT 29 U/L 0-33 normal Not Available [facility] [address] [place] [address], [address], 05/09/2019 18:45:10 05/09/20 19 05/09/2019 CMP, serum or plasm a GFR 94 >= 60 normal Not Available [facility] [address] [place] [address], [address], 05/09/2019 18:45:10 05/09/20 19 05/09/2019 CMP, serum or plasm a GFR non- 81 >= 60 normal NOT E NEW calcu latio n for GFR is based on the Natio nal Kidne y Found ation CKD-E PI equat ion and allow s for repor ting GFR value s great er than 60 mL/mi n/1.7 3 m2. This calcu latio n has not been valid ated for patie nts less than 18 yrs., pregn ant women and Hispa nics. Chron ic kidne y disea se is defin ed as kidne y damag e or GFR less than 60 mL/mi n/1.7 3 m2 for 3 month s or longe r. Not Available [facility] [address] [place] [address], [address], 05/09/2019 18:45:10 04/30/20 21 04/30/2021 COMPL ETE BLOOD COUNT white blood cells 7.9 K/uL 3.8-10 .8 normal Not Available [facility] [address] [place] [address], [address], 04/30/2021 19:26:57 04/30/20 21 04/30/2021 COMPL ETE BLOOD COUNT red blood cells 5.08 M/uL 3.80-5 .20 normal Not Available [facility] [address] [place] [address], [address], 04/30/2021 19:26:57 04/30/20 21 04/30/2021 COMPL ETE BLOOD COUNT hemoglobin 16.3 g/dL 12.0-1 6.0 high Not Available [facility] [address] [place] [address], [address], 04/30/2021 19:26:57 04/30/20 21 04/30/2021 COMPL ETE BLOOD COUNT hematocrit 46.7 % 35.0-4 7.0 normal Not Available [facility] [address] [place] [address], [address], 04/30/2021 19:26:57 04/30/20 21 04/30/2021 COMPL ETE BLOOD COUNT MCV 92 fL 80-100 normal Not Available [facility] [address] [place] [address], [address], 04/30/2021 19:26:57 04/30/20 21 04/30/2021 COMPL ETE BLOOD COUNT MCH 32 pg 26-35 normal Not Available [facility] [address] [place] [address], [address], 04/30/2021 19:26:57 04/30/20 21 04/30/2021 COMPL ETE BLOOD COUNT MCHC 35 g/dL 32-36 normal Not Available [facility] [address] [place] [address], [address], 04/30/2021 19:26:57 04/30/20 21 04/30/2021 COMPL ETE BLOOD COUNT RDW 12.9 % 11.0-1 5.0 normal Not Available [facility] [address] [place] [address], [address], 04/30/2021 19:26:57 04/30/20 21 04/30/2021 COMPL ETE BLOOD COUNT MPV 8.0 fL 6.2-10 .5 normal Not Available [facility] [address] [place] [address], [address], 04/30/2021 19:26:57 04/30/20 21 04/30/2021 COMPL ETE BLOOD COUNT platelet count 298 K/uL 130-40 0 normal Not Available [facility] [address] [place] [address], [address], 04/30/2021 19:26:57 04/30/20 21 04/30/2021 COMPL ETE BLOOD COUNT neutrophil,a bsolute 4.5 K/uL 1.6-8. 4 normal Not Available [facility] [address] [place] [address], [address], 04/30/2021 19:26:57 04/30/20 21 04/30/2021 COMPL ETE BLOOD COUNT lymphocyte,a bsolute 2.0 K/uL 0.4-5. 1 normal Not Available [facility] [address] [place] [address], [address], 04/30/2021 19:26:57 04/30/20 21 04/30/2021 COMPL ETE BLOOD COUNT monocyte,abs olute 0.7 K/uL 0.0-1. 2 normal Not Available [facility] [address] [place] [address], [address], 04/30/2021 19:26:57 04/30/20 21 04/30/2021 COMPL ETE BLOOD COUNT eosinophil,a bsolute 0.6 K/uL 0.0-0. 8 normal Not Available [facility] [address] [place] [address], [address], 04/30/2021 19:26:57 04/30/20 21 04/30/2021 COMPL ETE BLOOD COUNT basophil,abs olute 0.0 K/uL 0.0-0. 3 normal Not Available [facility] [address] [place] [address], [address], 04/30/2021 19:26:57 04/30/20 21 04/30/2021 COMPL ETE BLOOD COUNT % neutrophils 57.4 % 42.0-7 8.0 normal Not Available [facility] [address] [place] [address], [address], 04/30/2021 19:26:57 04/30/20 21 04/30/2021 COMPL ETE BLOOD COUNT % lymphocytes 25.2 % 11.0-4 7.0 normal Not Available [facility] [address] [place] [address], [address], 04/30/2021 19:26:57 04/30/20 21 04/30/2021 COMPL ETE BLOOD COUNT % monocytes 9.1 % 0.0-11 .0 normal Not Available [facility] [address] [place] [address], [address], 04/30/2021 19:26:57 04/30/20 21 04/30/2021 COMPL ETE BLOOD COUNT % eosinophils 7.7 % 0.0-7. 0 high Not Available [facility] [address] [place] [address], [address], 04/30/2021 19:26:57 04/30/20 21 04/30/2021 COMPL ETE BLOOD COUNT % basophils 0.6 % 0.0-3. 0 normal Not Available [facility] [address] [place] [address], [address], 04/30/2021 19:26:57 04/30/20 21 04/30/2021 COMPL ETE BLOOD COUNT nucleated red cells 0.0 % 0.0-0. 9 normal Not Available [facility] [address] [place] [address], [address], 04/30/2021 19:26:57 04/30/20 21 04/30/2021 COMPL ETE BLOOD COUNT nucleated RBCs, absolute 0.00 K/uL not estab. normal Not Available [facility] [address] [place] [address], [address], 04/30/2021 19:26:57 04/30/20 21 04/30/2021 COMP. METAB OLIC PANEL glucose 92 mg/dL 74-100 normal Not Available [facility] [address] [place] [address], [address], 04/30/2021 19:48:41 04/30/20 21 04/30/2021 COMP. METAB OLIC PANEL blood urea nitrogen 14 mg/dL 6-20 normal Not Available [facility] [address] [place] [address], [address], 04/30/2021 19:48:41 04/30/20 21 04/30/2021 COMP. METAB OLIC PANEL creatinine 0.85 mg/dL 0.50-0 .95 normal Not Available [facility] [address] [place] [address], [address], 04/30/2021 19:48:41 04/30/20 21 04/30/2021 COMP. METAB OLIC PANEL BUN/creatini ne ratio 16 (calc ) 10-20 normal Not Available [facility] [address] [place] [address], [address], 04/30/2021 19:48:41 04/30/20 21 04/30/2021 COMP. METAB OLIC PANEL sodium 141 mmol/ L 136-14 5 normal Not Available [facility] [address] [place] [address], [address], 04/30/2021 19:48:41 04/30/20 21 04/30/2021 COMP. METAB OLIC PANEL potassium 4.1 mmol/ L 3.4-5. 0 normal Not Available [facility] [address] [place] [address], [address], 04/30/2021 19:48:41 04/30/20 21 04/30/2021 COMP. METAB OLIC PANEL chloride 103 mmol/ L 98-107 normal Not Available [facility] [address] [place] [address], [address], 04/30/2021 19:48:41 04/30/20 21 04/30/2021 COMP. METAB OLIC PANEL carbon dioxide 26 mmol/ L 22-31 normal Not Available [facility] [address] [place] [address], [address], 04/30/2021 19:48:41 04/30/20 21 04/30/2021 COMP. METAB OLIC PANEL anion gap 12 (calc ) 7-25 normal Not Available [facility] [address] [place] [address], [address], 04/30/2021 19:48:41 04/30/20 21 04/30/2021 COMP. METAB OLIC PANEL calcium 9.6 mg/dL 8.6-10 .2 normal Not Available [facility] [address] [place] [address], [address], 04/30/2021 19:48:41 04/30/20 21 04/30/2021 COMP. METAB OLIC PANEL total protein 7.3 g/dL 6.4-8. 3 normal Not Available [facility] [address] [place] [address], [address], 04/30/2021 19:48:41 04/30/20 21 04/30/2021 COMP. METAB OLIC PANEL albumin 4.2 g/dL 3.5-5. 2 normal Not Available [facility] [address] [place] [address], [address], 04/30/2021 19:48:41 04/30/20 21 04/30/2021 COMP. METAB OLIC PANEL globulin 3.1 g/dL_ (calc ) 1.5-4. 5 normal Not Available [facility] [address] [place] [address], [address], 04/30/2021 19:48:41 04/30/20 21 04/30/2021 COMP. METAB OLIC PANEL albumin/glob ulin ratio 1.4 (calc ) 1.1-2. 5 normal Not Available [facility] [address] [place] [address], [address], 04/30/2021 19:48:41 04/30/20 21 04/30/2021 COMP. METAB OLIC PANEL bilirubin, total 0.4 mg/dL 0.1-1. 2 normal Not Available [facility] [address] [place] [address], [address], 04/30/2021 19:48:41 04/30/20 21 04/30/2021 COMP. METAB OLIC PANEL alkaline phosphatase 248 U/L 30-121 high Not Available [facility] [address] [place] [address], [address], 04/30/2021 19:48:41 04/30/20 21 04/30/2021 COMP. METAB OLIC PANEL AST 42 U/L 0-32 high Not Available [facility] [address] [place] [address], [address], 04/30/2021 19:48:41 04/30/20 21 04/30/2021 COMP. METAB OLIC PANEL ALT 52 U/L 0-33 high Not Available [facility] [address] [place] [address], [address], 04/30/2021 19:48:41 04/30/20 21 04/30/2021 COMP. METAB OLIC PANEL GFR 80 >= 60 normal Not Available [facility] [address] [place] [address], [address], 04/30/2021 19:48:41 04/30/20 21 04/30/2021 COMP. METAB OLIC PANEL GFR non- 69 >= 60 normal NOT E Chron ic kidne y disea se is defin ed as kidne y damag e for more than 3 month s or a GFR less than 60 mL/mi n/1.7 3 m2 for great er than 3 month s. This calcu latio n has not been valid ated in pregn ant women . For pedia tric patie nts refer to Natio nal Kidne y Found ation https ://ww [email or web address].edgar allen.o rg/pr ofess ional s/KDO QI/gf r_cal culat orPed Not Available [facility] [address] [place] [address], [phone], 04/30/2021 19:48:41 04/30/20 21 04/30/2021 LIPID PROFI LE HDL cholesterol 57 mg/dL 66-242 low Not Available [facility] [address] [place] [address], [address], 04/30/2021 19:48:43 04/30/20 21 04/30/2021 LIPID PROFI LE triglyceride s 164 mg/dL 0-149 high TRIGL YCERI DE RANGE S KELLY L: < 150 BORDE RLINE HIGH: 150 - 199 HIGH: 200 - 499 VERY HIGH: > OR = 500 Not Available [facility] [address] [place] [address], [address], 04/30/2021 19:48:43 04/30/20 21 04/30/2021 LIPID PROFI LE cholesterol 253 mg/dL 0-199 high EDWARD STERO L (TOTA L) RANGE S IWONA ABLE: < 200 BORDE RLINE : 200 - 239 HIGHE R RISK: > 239 Not Available [facility] [address] [place] [address], [phone], 04/30/2021 19:48:43 04/30/20 21 04/30/2021 LIPID PROFI LE LDL cholesterol 163 mg/dL _(raheem c) 0-99 high LDL EDWARD STERO L RANGE S OPTIM AL: < 100 NEAR/ ABOVE OPTIM AL: 100 - 129 BORDE RLINE HIGH: 130 - 159 HIGH: 160 - 189 VERY HIGH: > OR = 190 Not Available [facility] [address] [place] [address], [address], 04/30/2021 19:48:43 03/02/20 19 10/26/2018 MAMMO , scree fatou, tomos ynthe sis, bilat eral, w/ CAD No observ ation record ed. BARCODE Not Available 2018 15:29:49 01/05/20 21 12/18/2020 MAMMO , brynne fatou, bilat eral No observ ation record ed. [email or web address] Not Available 17:21:47 12/05/19 22 12/04/2021 CT, sinus es, w/o contr ast No observ ation record ed. [facility] [address], [place], [address], 12/06/2021 13:20:19 12/20/19 22 12/19/2021 MAMMO , brynne fatou, tomos ynthe sis, bilat eral, w/ CAD No observ ation record ed. [address], [place], [address], 12/19/2021 19:19:01 12/31/19 22 12/30/2021 US, erika t No observ ation record ed. [email or web address] [address] [place], [place], [address], 01/14/2022 09:03:06 Result Notes None recorded. Problems Name Problem SNOMED Code Status Onset Date Resolution Date Notes Provider Name and Address Organization Details Recorded Time Hyperten sive disorder 48287713 Completed 201408/20/2016 From Automated Load;Prov ider: Dat benjamin RSafia Ojeda.;Status : Active RONNY Benjamin MD [address] [place], [address], [facility] 7 13:12:19 Lichen simplex chronicu s 93613696 Active 2014 From Automated Load;Prov ider: Oleg Salas;[place]us: [place] [address] [place] [address], [phone], [facility] 2 09:04:36 Hemangio ma of skin and subcutan eous tissue 036078232 Completed 201503/04/2022 From Automated Load;Prov ider: Oleg Salas; atus: Active RONNY Benjamin MD [address] [place], [address], [facility] 2 09:13:07 Generali zed enlarged lymph nodes 725178264 Completed 201503/04/2022 From Automated Load;Prov ider: Dat benjamin RSafia Fernandez;Status : [place] [address] [place] [address], [address], [facility] 2 09:04:39 Benign essentia l hyperten suraj 0105425 Completed 201610/15/2018 [place] [address] [place] [address], [address], [facility] 9 08:36:14 Essentia l hyperten suraj 67554392 Active 2018 [place] [address] [place] [address], [phone], [facility] 2 09:04:33 Problem Notes None recorded. Procedures Surgical History Date Name Laterality Status Provider Name and Address Organization Details Recorded Time 04/22/20 18 EXCISION, TUMOR, SOFT TISSUE NECK/THORAX, SUBCUTANEOUS (SURG) completed Ashely Blanton [facility] 04/30/2018 08:02:20 04/20/20 18 Tobacco Cessation Counseling; 3-10 mins completed sAhely Blanton [facility] 04/20/2018 09:29:35 09/20/19 17 Laryngoscopy Flex completed Soledad Madsen [facility] 09/19/2016 08:53:46 [facility] 08:19:43 Breast Surgery completed [facility] 08/20/2016 08:20:03 Appendectomy completed [facility] 08/20/2016 08:20:09 Tubal Ligation completed [facility] 08/20/2016 08:20:18 Cataract Surgery completed RONNY DOBSON MD [address] [place] [address], [phone], [facility] 08/20/2016 08:26:28 Arthroscopic Surgery completed [facility] 08/26/2016 17:55:13 Colonoscopy completed [facility] 08/26/2016 17:55:29 Remove tonsils and adenoids completed [facility] 08/26/2016 17:55:40 Imaging Results None recorded. Procedure Notes None recorded. Medical Equipment None Reported. Allergies Allergen ID Allergen Name Allergen Category Reaction Reaction Severity Criticality Documentation Date Start Date Code Code System Note Provider Name and Address Organization Details Recorded Time 882648 clindamyc in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
[2024-12-04 23:38] LABS: Albumin Level 4.2 g/dl (3.5-5.0); Chloride 102 mmol/L (98-107); Potassium 3.7 mmoL/L (3.5-5.1); Sodium 133 mmol/L (136-145)
[2024-12-04 23:41] LABS: Alanine Aminotransferase 70 U/L (12-78); Albumin/Globulin Ratio 1.1 (1.1-1.8); Alkaline Phosphatase 359 U/L (38-126); Anion Gap 10.7 mEq/L (5-15); Aspartate Amino Transferase 74 U/L (14-36); Bilirubin,Total 0.8 mg/dl (0.2-1.3); Blood Urea Nitrogen 24 mg/dl (7-17); Carbon Dioxide 24 mmol/L (22.0-30.0); Creatinine Clearance Estimated 58 mL/min (50-200); Creatinine,Serum 0.80 mg/dl (0.52-1.04); Estimated Glomerular Filt Rate 70 ml/min (>60); GFR (African American) 85 ML/MIN (>60); Globulin 3.9 g/dL (1.3-3.2); Total Protein,Serum 8.1 g/dl (6.3-8.2)
[2024-12-04 23:42] LABS: Calcium 10.2 mg/dl (8.4-10.2); Glucose 109 mg/dl (74-100)
--- NOTE | 2024-12-05 00:11 | PC.NURSE ---
pt reported she felt funny to [facility]. Assessed pt. Pt reports she felt light-headed and dizzy for about a minute, and feels better now. Tele reviewed. no changes noted.
[2024-12-05 00:16] VITALS: BP 218/106
[2024-12-05 00:52] VITALS: BP 190/90; PULSE 66; RESP 16; TEMP 36.6; O2SAT 98
== END 2024-12-05 00:53 | disposition home or self-care (01) ==
PROVIDERS: Emergency Provider Emergency Medicine
DX: L53.9 Erythematous condition, unspecified (principal); L29.9 Pruritus, unspecified
CPT/HCPCS: 80053; 85025; 93005; 96361; 96372; 96374; 99284; J2919; J7030